=== PATIENT | male | born 1985 | race African-American/Black ===

== ENCOUNTER 2018-04-11 12:14 | Emergency (ER) | payer OTHER ==
[2018-04-11 12:53] VITALS: BP 123/87; PULSE 79; TEMP 98.9; BMI 34.4
--- NOTE | 2018-04-11 13:56 | PDOC ---
History of Present Illness - General Chief Complaint: Headache Stated Complaint: HEADACHE/RT NECK PAIN Time Seen by Provider: 04/11/18 13:22 History Source: Patient Exam Limitations: No Limitations - History of Present Illness Initial Comments: 04/11/18 13:53 32-year-old male presents to ED with complaints of right-sided head pressure radiating to his right eye and neck. Patient states has had a lipoma with cellulitis to the area and was concerned with recurrent infection although he denies presently. Patient states has been treated by his PCP for previous antibiotic prescriptions. Patient denies fever, chills, visual changes, nausea, or weakness. Timing/Duration: reports: episodic Severity: Yes: mild Associated Symptoms: reports: denies symptoms Past History - Travel Traveled outside of the country in the last 30 days: No Close contact w/someone who was outside of country & ill: No - Past Medical History Allergies/Adverse Reactions: Allergies Allergy/AdvReac Type Severity Reaction Status Date / Time No Known Allergies Allergy Unverified 04/11/18 12:50 Home Medications: Ambulatory Orders Doxycycline Hyclate 100 mg PO BID #14 capsule 01/12/16 - Suicide/Smoking/Psychosocial Hx Smoking History: Current every day smoker Number of Cigarettes Smoked Daily: 1 Information on smoking cessation initiated: Yes Hx Alcohol Use: No Drug/Substance Use Hx: No Patient Lives Alone: No Lives with/in: spouse/SO Review of Systems - Review of Systems Able to Perform ROS?: Yes Constitutional: No: Symptoms Reported HEENTM: No: Symptoms Reported Respiratory: No: Symptoms reported Cardiac (ROS): No: Symptoms Reported ABD/GI: No: Symptoms Reported : No: Symptoms Reported Musculoskeletal: No: Symptoms Reported Neurological: Yes: Headache. No: Numbness, Paresthesia, Tingling, Weakness Endocrine: No: Symptoms Reported Hematologic/Lymphatic: No: Symptoms Reported *Physical Exam - Vital Signs Last Vital Signs Temp Pulse Resp BP Pulse Ox 98.9 F 79 18 123/87 99 04/11/18 12:50 04/11/18 12:50 04/11/18 12:50 04/11/18 12:50 04/11/18 12:50 - Physical Exam General Appearance: Yes: Nourished, Appropriately Dressed. No: Apparent Distress HEENT: negative: Pale Conjunctivae Neck: positive: Supple Respiratory/Chest: positive: Lungs Clear, Normal Breath Sounds. negative: Respiratory Distress, Accessory Muscle Use Cardiovascular: positive: Regular Rhythm, Regular Rate. negative: Murmur Gastrointestinal/Abdominal: positive: Soft. negative: Tenderness Integumentary: positive: Normal Color, Warm, Moist, Other (Scar tissue to the occipital region of right side of scalp. No abscess appreciated) Neurologic: positive: Motor Strength 5/5 (ambulatory) Moderate Sedation - Procedure Monitoring Vital Signs: Procedure Monitoring Vital Signs Temperature 98.9 F 04/11/18 12:50 Pulse Rate 79 04/11/18 12:50 Respiratory Rate 18 04/11/18 12:50 Blood Pressure 123/87 04/11/18 12:50 O2 Sat by Pulse Oximetry (%) 99 04/11/18 12:50 ED Treatment Course - RADIOLOGY Radiology Studies Ordered: Category Date Time Status HEAD CT WITHOUT CONTRAST [CT] Stat CT Scan 04/11/18 13:33 Taken Medical Decision Making - Medical Decision Making 04/11/18 13:57 Complaint: Pain to recurrent abscess and cellulitis area of the right occipital scalp. Exam; no abscess or skin infection noted. No reproducible pain Plan: Head CT secondary to complaints of radiation to right neck and right eye 04/11/18 14:[address] shows no focal intracranial lesion or hemorrhage. Patient will be discharged home with recommendations to take Tylenol for discomfort and follow- up with his primary care doctor. *DC/Admit/Observation/Transfer Diagnosis at time of Disposition: Headache - Discharge Dispostion Disposition: HOME Condition at time of disposition: Good - Referrals - Patient Instructions Printed Discharge Instructions: DI for Hormonal and Tension Headaches Additional Instructions: At this time your CAT scan was negative. I Recommend taking extra strength Tylenol as needed for discomfort. You may follow up with your primary care doctor otherwise. - Post Discharge Activity
--- NOTE | 2018-04-11 13:58 | PDOC ---
*Physical Exam - Vital Signs Last Vital Signs Temp Pulse Resp BP Pulse Ox 98.9 F 79 18 123/87 99 04/11/18 12:50 04/11/18 12:50 04/11/18 12:50 04/11/18 12:50 04/11/18 12:50 Medical Decision Making - Medical Decision Making 04/11/18 13:58 Pt seen by Midlevel Provider under my direct supervision I agree with plan as outlined by Midlevel Provider *DC/Admit/Observation/Transfer Diagnosis at time of Disposition: Headache - Discharge Dispostion Disposition: HOME Condition at time of disposition: Good - Referrals - Patient Instructions Printed Discharge Instructions: DI for Hormonal and Tension Headaches Additional Instructions: At this time your CAT scan was negative. I Recommend taking extra strength Tylenol as needed for discomfort. You may follow up with your primary care doctor otherwise. - Post Discharge Activity
[2018-04-11] MEDS ORDERED: ACETAMINOPHEN 500 MG TABLET (FP) PO ONE (14:09)
[2018-04-11] MEDS ORDERED: ACETAMINOPHEN 325 MG TABLET (FP) ONE (14:26)
== END 2018-04-11 14:32 | disposition home or self-care (01) ==
LOC: JER 12:14
DX: R51 Headache (principal)
CPT/HCPCS: 70450-TC; 99281-25